=== PATIENT | male | born 1970 | race Caucasian/White ===

== ENCOUNTER 2019-12-04 02:30 | Emergency (ER) | payer MEDICAID ==
[~2019-12-04] VITALS: Ht 170.2 cm; Wt 75.0 kg
[2019-12-04 02:33] VITALS: BP 163/93
[2019-12-04] MEDS ORDERED: LIDOcaine 1% W/epiNEPHrine 1:200,000 10ml vial IJ ONE (02:55)
== END 2019-12-04 04:15 | disposition home or self-care (01) ==
LOC: ER 02:31
DX: S50.851A Superficial foreign body of right forearm, initial encounter (principal); S30.811A Abrasion of abdominal wall, initial encounter; W45.8XXA Other foreign body or object entering through skin, initial encounter; Y93.89 Activity, other specified; Y92.89 Other specified places as the place of occurrence of the external cause; Y99.8 Other external cause status
CPT/HCPCS: 10120; 12020; 73090; 99285

== ENCOUNTER 2024-05-09 15:26 | Emergency (ER) | payer MEDICAID ==
[~2024-05-09] VITALS: Ht 170.2 cm; Wt 92.4 kg
[2024-05-09 16:02] VITALS: BP 140/74; PULSE 76; O2SAT 95
[2024-05-09 17:00] VITALS: RESP 16
[2024-05-09] MEDS: HYDROcodone/acetaminophen 10/325mg tab PO ONE (17:00)
[2024-05-09] MEDS ORDERED: HYDR-3973 PO (17:20)
[2024-05-09 17:48] VITALS: TEMP 98.1
== END 2024-05-09 17:53 | disposition home or self-care (01) ==
LOC: ER 15:27
DX: S13.4XXA Sprain of ligaments of cervical spine, initial encounter (principal); S00.83XA Contusion of other part of head, initial encounter; S09.8XXA Other specified injuries of head, initial encounter; W18.30XA Fall on same level, unspecified, initial encounter; Y93.89 Activity, other specified; Y92.89 Other specified places as the place of occurrence of the external cause; Y99.8 Other external cause status
CPT/HCPCS: 70450; 72125; 99284

== ENCOUNTER 2024-05-21 20:41 | Emergency (ER) | payer MEDICAID ==
[~2024-05-21] VITALS: Ht 170.2 cm; Wt 94.2 kg
[2024-05-21 20:56] VITALS: BP 153/92; PULSE 88; RESP 18; TEMP 99.7; O2SAT 98
[2024-05-21] MEDS: ketorolac trometh 30MG/ML vial 30 MG/ML VIAL IM ONE (22:26)
== END 2024-05-21 22:44 | disposition home or self-care (01) ==
LOC: ER 20:42
DX: R51.9 Headache, unspecified (principal); Z91.030 Bee allergy status
CPT/HCPCS: 96372; 99283; J1885

== ENCOUNTER 2024-08-01 18:52 | Emergency (ER) | payer MEDICAID ==
[~2024-08-01] VITALS: Ht 170.2 cm; Wt 92.1 kg
[2024-08-01] MEDS ORDERED: ketorolac trometh 15mg/ml vial 15 MG/ML ML IM ONE (19:50)
[2024-08-01] MEDS: butalbital 50MG/acetaminophen 300MG/caffeine 40MG (Fioricet) CAPSULE PO ONE (20:06)
[2024-08-01] MEDS: ketorolac trometh 30MG/ML vial 30 MG/ML VIAL IM ONE (20:18)
[2024-08-01] MEDS ORDERED: MECL-302 PO (20:40)
[2024-08-01] MEDS ORDERED: BUTA-245 PO (20:40)
[2024-08-01 20:57] VITALS: BP 132/84; PULSE 65; RESP 17; TEMP 97; O2SAT 99
== END 2024-08-01 20:50 | disposition home or self-care (01) ==
LOC: ER 18:52
DX: S06.9XAA Unspecified intracranial injury with loss of consciousness status unknown, initial encounter (principal); X58.XXXA Exposure to other specified factors, initial encounter; Y93.89 Activity, other specified; Y92.89 Other specified places as the place of occurrence of the external cause; Y99.8 Other external cause status
CPT/HCPCS: 96372; 99283; J1885